=== PATIENT | female | born 1990 | race Caucasian/White ===

== ENCOUNTER → 2019-03-02 08:47 | Outpatient (BNVA) | payer BC, SELFPAY | PROVIDERS: Family Provider Family Medicine; PCP Family Medicine; Visit Provider Obstetrics & Gynecology | DX: O09.891 Supervision of other high risk pregnancies, first trimester (principal) | CPT/HCPCS: 36415; 80307; 82950; 84156; 84315; 84443; 85027; 86592; 86762; 86803; 86850; 86900; 87086; 87340 ==

== ENCOUNTER 2019-03-05 09:16 | Outpatient (CLI) | payer BC, SELFPAY ==
[2019-03-05 10:41] LABS: Creatinine Urine, Random 88 mg/dL (28-217)
[2019-03-05 11:15] LABS: Total Volume, Urine 2400 mL
[2019-03-05 11:16] LABS: Total Protein 24 Hour Urine 5.6 mg/24HR (0-150); Urine Total Protein 24 Hour 134.4 mg/24hr (0-150)
[2019-03-05 11:17] LABS: Collection Time Urine 24; Patient Height Urine 68; Patient Weight Urine 340; Total Volume Urine 2400
[2019-03-05 11:18] LABS: Creatinine Clearance Urine 366
== END 2019-03-05 09:17 | disposition home or self-care (01) ==
LOC: LAB 09:19
PROVIDERS: Family Provider Family Medicine; PCP Family Medicine; Visit Provider Obstetrics & Gynecology
DX: O10.011 Pre-existing essential hypertension complicating pregnancy, first trimester (principal)
CPT/HCPCS: 82575; 84156

== ENCOUNTER → 2019-03-12 11:40 | Outpatient (BNVA) | payer BC, SELFPAY | PROVIDERS: Family Provider Family Medicine; PCP Family Medicine; Visit Provider Obstetrics & Gynecology | DX: O09.891 Supervision of other high risk pregnancies, first trimester (principal) | CPT/HCPCS: 84315; 87491; 87591 ==

== ENCOUNTER → 2019-03-29 13:12 | Outpatient (BNVA) | payer BC, SELFPAY | PROVIDERS: Family Provider Family Medicine; PCP Family Medicine; Referring Provider Obstetrics & Gynecology; Visit Provider Obstetrics & Gynecology | DX: O10.912 Unspecified pre-existing hypertension complicating pregnancy, second trimester (principal); Z3A.15 15 weeks gestation of pregnancy | CPT/HCPCS: 76815 ==

== ENCOUNTER → 2019-04-06 09:22 | Outpatient (BNVA) | payer BC, SELFPAY | PROVIDERS: Family Provider Family Medicine; PCP Family Medicine; Visit Provider Obstetrics & Gynecology | DX: Z01.89 Encounter for other specified special examinations (principal) | CPT/HCPCS: 84315 ==

== ENCOUNTER → 2019-04-26 18:16 | Outpatient (BNVA) | payer BC, SELFPAY | PROVIDERS: Family Provider Family Medicine; PCP Family Medicine; Visit Provider Nurse Practitioner Family | DX: J02.9 Acute pharyngitis, unspecified (principal); R68.89 Other general symptoms and signs | CPT/HCPCS: 87081; 87804; 87880 ==

== ENCOUNTER → 2019-05-16 08:25 | Outpatient (BNVA) | payer BC, SELFPAY | PROVIDERS: Family Provider Family Medicine; PCP Family Medicine; Visit Provider Obstetrics & Gynecology | DX: Z36.89 Encounter for other specified antenatal screening (principal); Z3A.22 22 weeks gestation of pregnancy | CPT/HCPCS: 76805 ==

== ENCOUNTER → 2019-05-18 09:37 | Outpatient (BNVA) | payer BC, SELFPAY | PROVIDERS: Family Provider Family Medicine; PCP Family Medicine; Visit Provider Obstetrics & Gynecology | DX: Z01.89 Encounter for other specified special examinations (principal) | CPT/HCPCS: 84315 ==

== ENCOUNTER → 2019-06-06 08:00 | Outpatient (BNVA) | payer BC, SELFPAY | PROVIDERS: Family Provider Family Medicine; PCP Family Medicine; Visit Provider Obstetrics & Gynecology Female Pelvic Medicine and Reconstructive Surgery | DX: Z01.89 Encounter for other specified special examinations (principal) | CPT/HCPCS: 84315 ==

== ENCOUNTER → 2019-07-02 14:58 | Outpatient (BNVA) | payer BC, SELFPAY | PROVIDERS: Family Provider Family Medicine; PCP Family Medicine; Visit Provider Obstetrics & Gynecology | DX: O09.892 Supervision of other high risk pregnancies, second trimester (principal) | CPT/HCPCS: 82950; 84315; 85027 ==

== ENCOUNTER 2019-07-24 22:00 | Observation (INO) | payer BC, SELFPAY ==
[2019-07-24] VITALS (18 sets, daily range): BP systolic 0–180; BP diastolic 0–87; PULSE 84–105; RESP 18; TEMP 36.9; BMI 54.4
[2019-07-24 18:06] LABS: Basophils % 0.2 %; Eosinophils # 0.1 10^3/uL (0.0-0.8); Eosinophils % 0.5 %; Hematocrit 37.9 % (37.0-47.0); Hemoglobin 12.3 g/dL (11.5-15.3); Lymphocytes # 1.8 10^3/uL (0.8-4.8); Lymphocytes % 15.3 %; Mean Corpuscular HGB Conc 32.5 g/dL (30.0-36.0); Mean Corpuscular Hemoglobin 28.5 pg (28.0-34.0); Mean Corpuscular Volume 87.7 fL (81-99); Mean Platelet Volume 8.8 fL (7.4-10.4); Monocytes # 0.6 10^3/uL (0.2-0.9); Monocytes % 5.2 %; Neutrophils # 8.9 10^3/uL (1.8-7.7); Neutrophils % 78.3 %; Nucleated Red Blood Cells % 0 %; Platelet Count 292 10^3/cmm (130-400); Red Blood Count 4.32 10^6/uL (4.1-5.3); Red Cell Distribution Width 14.5 % (12.1-15.1); White Blood Count 11.4 10^3/uL (4.0-10.0)
[2019-07-24 18:38] LABS: Alanine Aminotransferase 21 U/L (0-33); Albumin Level 3.8 g/dL (3.5-5.2); Alkaline Phosphatase 78 IU/L (35-105); Anion Gap 17.1 (5-19); Aspartate Amino Transferase 15 U/L (0-32); Blood Urea Nitrogen 8 mg/dL (6-20); Carbon Dioxide 21 mmol/L (22-29); Chloride 103 mmol/L (98-107); Glomerular Filtration Rate 144.9 mL/min (90-130); Glucose 105 mg/dL (65-115); Osmolality Calculated 280 mOsm/kg (285-295); Potassium 4.1 mmol/L (3.5-5.1); Sodium 137 mmol/L (136-145); Total Bilirubin 0.6 mg/dL (0.15-1.2); Total Protein 6.8 g/dL (6.6-8.7); Uric Acid 4.1 mg/dL (2.4-5.7)
[2019-07-24 20:12] LABS: Urine Creatinine 151 mg/dL (28-217); Urine Protein Random 14 mg/dL
[2019-07-24 20:15] LABS: UPRO/UCREAT Ratio 0.09 mg/mg CR
[2019-07-24] MEDS: labetalol 200 mg Tablet 100 MG PO (20:20)
--- NOTE | 2019-07-24 20:21 | P.HP_ITS ---
Providers/Chief Complaint Admitting Physician: Judson Bridges MD Primary STORES LABORER: Judson Bridges MD Primary Care Provider: Lucas Galeano MD Chief Complaint: monitoring HPI STORES LABORER History of Present Illness Kerri Elliott is a 29 year old female 4, para 1-0-2-1 with an LMP of 12/15/2018 and an EDC of 09/21/2019 based on LMP and consistent with 15-week ultrasound, which placed her at 31-4/7 weeks gestation. She presented to labor and delivery with complaint of elevated blood pressures. She had been monitoring her blood pressure at home due to prepregnancy hypertension. At home, she reported that her blood pressure was 189/105 with several elevated ones that were not quite that high at home. She was reporting a headache since Tuesday, 07/21. Reports seeing floaters in her vision. Has no ticed some swelling. She reported good movement. She denied leaking of fluid or vaginal bleeding. She reported occasional contractions. care is been mainly provided by Dr. Judson Bridges [facility]. Her has been complicated by pre-e xisting hypertension, gastroesophageal reflux, obesity, and prior section. Patient's hypertension has not required medication during the . She had been on lisinopril before getting . Review of Systems Const: Denies: fever(s) or chills Eyes: Reports: change in vision (Reports seeing floaters ) ENMT: Denies: throat pain or nasal congestion Card: Reports: swelling of feet/ankles; Denies: chest pain, palpitations or lightheadedness Resp: Denies: dyspnea, productive cough, non-productive cough or wheezing GI: Denies: abdominal pain, nausea, vomiting, diarrhea or constipation : Reports: urinary frequency; Denies: dysuria, genital pruritis, vaginal bleeding or vaginal discharge Neuro: Reports: headache(s); Denies: dizziness or seizure-like activity Psych: Reports: anxiety (Controlled with medication) and depression (Controlled with medication) Nickolas/Lymph: Denies: easy bruising or easy bleeding Medications/Allergies Home Medications Medication Instructions Recorded Confirmed Last Taken Type ferrous sulfate 325 mg (65 mg 325 mg PO DAILY 04/06/19 07/16/19 Unknown History iron) tablet,delayed release Vitamin PO 04/26/19 07/16/1920 21:00 History aspirin 81 mg tablet,delayed 81 mg PO DAILY 05/18/19 07/24/19 07/23/19 21:00 History release cetirizine 10 mg capsule 10 mg PO DAILY 05/18/19 07/24/19 07/23/19 21:00 History acetaminophen 500 mg tablet 500 mg PO Q6H PRN 06/06/19 07/16/19 Unknown History omeprazole 20 mg capsule,delayed 20 mg PO DAILY 30 Days #30 cap 07/16/19 07/24/19 07/23/19 21:00 Rx release Allergies Allergy/AdvReac Type Severity Reaction Status Date / Time Penicillins Allergy Unknown Unknown Verified 07/16/19 15:02 gluten Allergy ADR-Hyperte Verified 07/24/19 20:08 nsion PFSH 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 Diagnosis: Worsening gestational hypertension. Performed by Dr. Judson Bridges at [facility] and [place], [place]. Confirmed LTCS with 2 layer closure. H/O dilation and curettage (08/04/17) Diagnosis: Molar . Performed by Dr. Judson Bridges at [facility] in [place], [place]. Pathology confirmed molar . History of cholecystectomy (~04/2014) Laparoscopic. Performed in [place], [place]. Family History Mother Hypertension Diabetes Father Hypertension Diabetes Heart disease Congestive heart failure (CHF) Chronic kidney disease (CKD) Brother Hypertension Grandfather Diabetes Heart disease Grandmother Diabetes Breast cancer Maternal Colon cancer Paternal Social History Smoking and tobacco status: never smoked Alcohol intake: former Former alcohol use details: Occational alcohol use, denies since Substance/Drug Use: never Additional social history: Nutrition: Well-balanced diet. Other Female Reproductive History: Hx Age of Menarche: 12 Duration of menses: 3-5 days Date of Last Menstrual Period: 10/18/19 Cycle Length: every 28 days Menstrual flow: normal/abnormal: normal History History History 4 Term 1 Miscarriages/Ectopic 2 0 Living Children 1 Past Pregnancies Del. Date GA/Weeks Outcome Route Wt Inf Gender Labor Lgth Comp. Anesth esia Location Unknown spontaneous 08/04/17 molar 05/18/18 37 live - full term 8 lb 4 oz Male [place] in [place], [place] Delivery Date: No notes to display Delivery Date: 08/04/17 Treated by D&C Judson Bridges Delivery Date: 05/18/[address] Judson Bridges. Complicated by: Severe gestational hypertension. due to worsening hypertension. Judson Bridges Care LATRICE Calculator Estimated Delivery Date Method Current WG Current Estimate 09/21/19 LMP (Certain) 31w 4d Other Estimates 09/20/19 Ultrasound #1 31w 5d 09/17/19 Ultrasound #2 32w 1d Expected Delivery Route/Plan Repeat section with BTL - scheduled for 09/18/2019 Specific Issues/Plans * Previous LTCS * Pre-existing hypertension * Obesity * Migraine headaches * Rubella Non-Immune - needs MMR after delivery. OB Visit Log Initial Weight: 345 lb Date -?-?-?-?-?-?-?-?-?-?-?-?- EGA Weight BP Albumin -?-?-?-?-?-?-?-?-?-?-?-?- Glucose Nitrate -?-?-?-?-?-?-?-?-?-?-?-?- Blood Fun Ht PRES HR MVMT -?-?-?-?-?-?-?-?-?-?-?-?- Edema Dilation Effacement -?-?-?-?-?-?-?-?-?-?-?-?- Station 02/08/19 -?-?-?-?-?-?-?--?-?-?-?-?- 7w 6d 345 lb (+0 oz) 126/84 Negative/Normal Negative/ 03/02/19 -?-?-?-?-?-?-?-?-?-?-?-?- 11w 0d 347 lb 6.4 oz (+2 lb 6.4 oz) 128/94 Neg (Nega tive) -?-?-?-?-?-?-?-?-?-?-?-?- Norm (Normal) Negative (Negat rossana) -?-?-?-?-?-?-?-?-?-?-?-?- -?-?-?-?-?-?-?-?-?-?-?-?- -?-?-?-?-?-?-?-?-?-?-?-?- 03/12/19 -?-?-?-?-?-?-?-?-?-?-?-?- 12w 3d 347 lb 2 oz (+2 lb 2 oz) 122/82 Neg (Negati ve) -?-?-?-?-?-?-?-?-?-?-?-?- Norm (Normal) Negative (Negat rossana) -?-?-?-?-?-?-?-?-?-?-?-?- -?-?-?-?-?-?-?-?-?-?-?-?- -?-?-?-?-?-?-?-?-?-?-?-?- 04/06/19 -?-?-?-?-?-?-?-?-?-?-?-?- 16w 0d 347 lb 2 oz (+2 lb 2 oz) 132/88 Neg (Negati ve) -?-?-?-?-?-?-?-?-?-?-?-?- Norm (Normal) Negative (Negat rossana) -?-?-?-?-?-?-?-?-?-?-?-?- 151 active -?-?-?-?-?-?-?-?-?-?-?-?- 1+ -?-?-?-?-?-?-?-?-?-?-?-?- 05/18/19 -?-?-?-?-?-?-?-?-?-?-?-?- 22w 0d 349 lb 6 oz (+4 lb 6 oz) 130/84 Neg (Negati ve) -?-?-?-?-?-?-?-?-?-?-?-?- Norm (Normal) Negative (Negat rossana) -?-?-?-?-?-?-?-?-?-?-?-?- Neg (Negative) 149 active -?--?-?-?-?-?-?-?-?-?-?-?- 1+ -?-?-?-?-?-?-?-?-?-?-?-?- 06/05/19 -?-?-?-?-?-?-?-?-?-?-?-?- 24w 4d -?-?-?-?-?-?-?-?-?-?-?-?- -?-?-?-?-?-?-?-?-?-?-?-?- -?-?-?-?-?-?-?-?-?-?-?-?- -?-?-?-?-?-?-?-?-?-?-?-?- 06/06/19 -?-?-?-?-?-?-?-?-?-?-?-?- 24w 5d 348 lb (+3 lb) 124/80 Neg (Negative ) -?-?-?-?-?-?-?-?-?-?-?-?- Norm (Normal) Negative (Negat rossana) -?-?-?-?-?-?-?-?-?-?-?-?- Neg (Negative) 29 vertex 138 active -?-?-?-?-?-?-?-?-?-?-?-?- 1+ -?-?-?-?-?-?--?-?-?-?-?-?- 07/02/19 -?-?-?-?-?-?-?-?-?-?-?-?- 28w 3d 351 lb 6 oz (+6 lb 6 oz) 118/84 Neg (Negati ve) -?-?-?-?-?-?-?-?-?-?-?-?- Norm (Normal) Negative (Negat rossana) -?-?-?-?-?-?-?-?-?-?-?-?- Neg (Negative) 32 140 act rossana -?-?-?-?-?-?-?-?-?-?-?-?- trace -?-?-?-?-?-?-?-?--?-?-?-?- 07/16/19 -?-?-?-?-?-?-?-?-?-?-?-?- 30w 3d 354 lb 6 oz (+9 lb 6 oz) 132/88 Neg (Negati ve) -?-?-?-?-?-?-?-?-?-?-?-?- Norm (Normal) Negative (Negat rossana) -?-?-?-?-?-?-?-?-?-?-?-?- Neg (Negative) 138 active -?-?-?-?-?-?-?-?-?-?-?-?- trace -?-?-?-?-?-?-?-?-?-?-?-?- 07/24/19 -?-?-?-?-?-?-?-?-?-?-?-?- 31w 4d 358 lb (+13 lb) 0/0 180/75 163/84 165/85 121/74 169/75 179/86 155/72 156/73 138/68 143/71 163/74 167/85 176/80 0/0 166/87 Neg (Negative) -?-?-?-?-?-?-?-?-?-?-?-?- Norm (Normal) Negative (Negat rossana) -?-?-?-?-?-?-?-?-?-?-?-?- Neg (Negative) 125 125 -?-?-?-?-?-?-?-?-?-?-?-?- -?-?-?-?-?-?-?-?-?-?-?-?- Notes Visit Date: 07/24/19 No visit notes to display Visit Date: 07/16/19 No visit notes to display Visit Date: 07/02/19 No visit notes to display Visit Date: 06/06/19 Patient presents today at 24+5 weeks gestation doing well no complaints no headaches no visual changes no right upper quadrant midepigastric pain. She has good movement. Recent ultrasound at 20 weeks was unremarkable patient did not do genetic screening or AFP. Her weight is down 1 kg from last visit. She is currently on baby aspirin for history of significant previous gestational hypertension. Patient desires repeat and tubal ligation. Ellis Cheung DO on 06/06/19 Visit Date: 06/05/19 No visit notes to display Visit Date: 05/18/19 ZI at 22-0/7 WG. Blood pressure remains normal. Screening ultrasound reviewed with patient and was normal. Judson Bridges MD on 05/22/19 Visit Date: 04/06/19 ZI at 16-0/7 WG. Nausea greatly improved. Blood pressure remains marsha l. Quad screen declined. Ultrasound for anatomic survey. Judson Bridges MD on 04/10/19 Visit Date: 03/12/19 OB exam at 12-3/7 WG. Consistent with dates. Gonorrhea and Chlamydia testing today. labs reviewed with patient. Rubella nonimmune - needs MMR after delivery. Hypertension. Blood pressure continues to remain normal. Nausea and vomiting of improving. Judson Bridges MD on 03/18/19 Visit Date: 03/02/19 No visit notes to display Visit Date: 02/08/19 OBI at 7.6 WG-------> ?28 year old with LMP of 12/15/2018, with LATRICE 09/21/2019 - short IC - mild nausea; managed with diet changes - chronic htn; managed without medication in previous until she developed severe features and was induced; off lisinopril for the last 4-5 months; BP normotensive today; collect 24 hour urine for TP after clear urine culture. - previous c/s; desires repeat with tubal -Ob packet provided. Reviewed routine vist schedule, labs, approved medications in , discussed the importance of avoiding nicotine/alcohol/drugs and the effects this has on her and the , and when to notify the doctor. Medical and obstetrical history reviewed. ? -Continue vitamins. - labs at next visit; discussed NIPT, QUAD, AFP, CF. Vitals/I&O/Wt Last Vital Signs Temp 98.5 F 07/24/19 17:28 Pulse 90 07/24/19 19:29 Resp 18 07/24/19 17:28 BP 166/87 07/24/19 19:29 Weight last 48 hrs Weight 358 lb Physical Exam Const: COMMON NORMALS: no acute distress, average body habitus, alert and well nourished GENERAL APPEARANCE: well developed ORIENTATION/CONSCIOUSNESS: Yes oriented to person, Yes oriented to place and Yes oriented to time Neck/C-Spine: COMMON NORMALS: Thyroid normal GENERAL: Yes trachea midline THYROID: Thyroid normal Resp: COMMON NORMALS: normal respiratory effort and clear to auscultation bilaterally AUSCULTATION: clear to auscultation bilaterally Cardio: COMMON NORMALS: regular rate, regular rhythm, No gallops present (Cardio), No murmurs present (Cardio) and No rub (Cardio) RATE: regular rate RHYTHM: regular rhythm GI: COMMON NORMALS: Soft to palpation, non-tender, No hepatosplenomegaly present and no masses (Except for nontender gravid uterus) INSPECTION: Yes gravid abdomen AUSCULTATION: Yes normoactive bowel sounds PALPATION: Yes Soft to palpation, Yes No hepatosplenomegaly present and No Hernia present Extremity: COMMON NORMALS: no calf tenderness GENERAL: Yes edema (1+ lower extremity edema) Neuro: SENSORIUM/ORIENTATION: Yes alert, Yes oriented to person, Yes oriented to place and Yes oriented to time Psych: COMMON NORMALS: normal affect MOOD & AFFECT: Yes euthymic mood Skin: COMMON NORMALS: no rashes or lesions noted GENERAL SKIN EXAM: no rashes or lesions noted Data : 07/24/19 17:50 07/24/19 17:50 Other Labs: 07/24/2019 at 17:50 ALT 21, AST 15 Uric acid 4.1 07/24/2019 at 18:00 Protein/creatinine ratio: 0.09 A&P Assessment and plan (1) Pre-existing essential hypertension complicating , third trimester: at 31-4/7 weeks gestation. Patient has had multiple elevated blood pressures with the majority in the 160s/80s range. She has had some in the normal ranges. Her initial evaluation for preeclampsia was negative with a protein/creatinine ratio of 0.09. Baby at this time has been reassuring on monitoring. With her diagnosis of pre-existing hypertension, I suspect that this represents the increase in her blood pressure that can be seen in the third trimester of . However, this could be the beginning stages of the development of preeclampsia, but that is not supported based upon lab work at this time. Because of having the pre-existing hypertension, I am starting her on scheduled labetalol at 100 mg twice a day. I recommend continuing to monitor blood pressure through the night. She is also starting a 24-hour urine collection for total protein. We will switch monitoring to twice a day NSTs. Depending upon blood pressure readings with the start of the oral labetalol, she may be able to be discharged tomorrow morning with the completion of her 24-hour urine as an outpatient. Questions were answered. Patient and her partner are in agreement with this plan at this time. Status: Acute Attestations Medical Necessity Statement*: Patient with worsening hypertension in third trimester of . She is currently being evaluated for possible preeclampsia. Coding Level of Care Code Acute Business And Marketing Teacher for Laura Hart Diagnoses Pre-existing essential hypertension complicating , third trimester O10.013
[2019-07-24 20:41] LABS: Blood Urine Neg (Negative); Glucose Urine UA Norm (Normal); Ketones Urine 1+ (Negative); Protein Urine Neg (Negative); Specific Gravity, Urine 1.025 (1.005-1.030); Urine Appearance Cloudy (CLEAR); Urine Color Yellow (Yellow); pH Urine 5 (5-7)
[2019-07-24 20:42] LABS: Add Urine Microscopic? YES; Bilirubin Urine Neg (NEGATIVE); Leukocyte Esterase Urine Negative (Negative); Nitrate Urine Negative (Negative); Urobilinogen Urine Norm (Negative)
[2019-07-24 20:43] LABS: Add Urine Culture? No; Bacteria Urine 1+; Mucus Urine TRACE; RBC Urine 0-4 /hpf (0-2); Squamous Epithelial Cell Urine 25-40 (0-5); WBC Urine 0-4 /hpf (0-5)
[2019-07-25] VITALS (8 sets, daily range): BP systolic 110–133; BP diastolic 50–72; PULSE 80–143; RESP 16–18; TEMP 36.6; O2SAT 90
[2019-07-25] MEDS: aspirin 81 mg EC Tablet PO (09:10)
[2019-07-25] MEDS: labetalol 200 mg Tablet 100 MG PO (09:10)
[2019-07-25] MEDS: pantoprazole DR 40 mg Tablet PO (09:10)
--- NOTE | 2019-07-25 15:43 | PM.DCS ---
Discharge Providers Date of Admission: 07/24/19 22:00 Date of Discharge: July 25, 2019 Attending Provider at Admission: Judson Bridges MD Attending Provider at Discharge: Judson Bridges MD Primary Care Provider: Lucas Galeano MD Diagnoses at Discharge Discharge Diagnosis (1) Pre-existing essential hypertension complicating , third trimester: Status: Acute Reason for Visit Reason for Visit: Reason For Visit: monitoring Hospital Course Hospital Course: Patient is a 29-year-old female 4, para 1-0-2-1 with an LMP of 12/15/2018 and an EDC of 09/21/2019 based on LMP and consistent with 15-week ultrasound, which placed her at 31-4/7 weeks gestation at the time of admission. Patient presented to labor and delivery on 07/24 with a complaint of worsening blood pressure. She reported that she had had blood pressures at home that were quite elevated with the highest being 185/105. She was reported having a headache and noticing floaters in her vision. Her past medical history was significant for having prepregnancy hypertension but had not required medication during the so far. Blood pressures in L&D was elevated with some considered in the severe range. Preeclamptic laboratory evaluation was performed with blood tests being in the normal ranges. Urine protein creatinine ratio was 0.09. Based upon this she did not have preeclampsia. As a result she was started on oral labetalol due to suspected worsening of her hypertension and not preeclampsia. However, 24-hour urine for total protein was started. With the starting of the labetalol, decision was made to keep her through the night to monitor her blood pressures. This morning, 07/24, patient reported doing well. Her headache had resolved. She reported baby has been moving well. She denied any leaking of fluid or vaginal bleeding. She reported occasional contractions. Physical Exam: See below Plan: Blood pressures have been in the normal ranges during the night after starting the oral labetalol. With increased activities this morning, blood pressure has remained in the normal range. As a result, I am discharging her from the hospital. She is to complete her 24-hour urine collection for total protein at home and bring it to the hospital tomorrow morning for testing. She was instructed to keep her scheduled appointment next week in the office. Physical Exam Const: COMMON NORMALS: no acute distress, average body habitus, alert and well nourished GENERAL APPEARANCE: well developed ORIENTATION/CONSCIOUSNESS: Yes oriented to person, Yes oriented to place and Yes oriented to time Resp: COMMON NORMALS: normal respiratory effort and clear to auscultation bilaterally AUSCULTATION: clear to auscultation bilaterally Cardio: COMMON NORMALS: regular rate, regular rhythm, No gallops present (Cardio) and No rub (Cardio) RATE: regular rate RHYTHM: regular rhythm GI: COMMON NORMALS: Soft to palpation, non-tender, No hepatosplenomegaly present and no masses (Except for nontender gravid uterus) AUSCULTATION: Yes normoactive bowel sounds PALPATION: Yes Soft to palpation, Yes No hepatosplenomegaly present and No Hernia present : EXTERNAL FEMALE EXAM: No Hernia present Extremity: COMMON NORMALS: no calf tenderness GENERAL: Yes edema (1+ lower extremity edema) Neuro: SENSORIUM/ORIENTATION: Yes alert, Yes oriented to person, Yes oriented to place and Yes oriented to time Psych: COMMON NORMALS: normal affect MOOD & AFFECT: Yes euthymic mood Discharge Data Data Completed and Pending: Pending at discharge Category Date Time Status Total Protein 24 Hour Urine Routine Lab 07/25/19 10:53 Ordered Labs from last 24 hours 07/24/19 07/24/19 07/24/19 18:00 18:00 17:50 WBC RBC Hgb Hct MCV MCH MCHC RDW Plt Count MPV Neut % (Auto) Lymph % (Auto) [facility] [facility] % (Auto) Eos % (Auto) Baso % (Auto) Neut # (Auto) Lymph # (Auto) [facility] # (Auto) Eos # (Auto) Baso # (Auto) Nucleated RBC % (a uto) Nucleated RBCs # Sodium 137 Potassium 4.1 Chloride 103 Carbon Dioxide 21 L Anion Gap 17.1 BUN 8 Creatinine 0.5 GFR Calculation 144.9 H Glucose 105 Calculated Osmolal ity 280 L Uric Acid 4.1 Calcium 9.0 Total Bilirubin 0.6 AST 15 ALT 21 Alkaline Phosphata se 78 Total Protein 6.8 Albumin 3.8 Globulin 3.0 Urine Color Yellow Urine Appearance Cloudy Urine pH 5 Ur Specific Gravit y 1.025 Urine Protein Neg Urine Glucose (UA) Norm Urine Ketones 1+ H Urine Blood Neg Urine Nitrate Negative Urine Bilirubin Neg Urine Urobilinogen Norm Ur Leukocyte Betty ase Negative Urine RBC 0-4 H Urine WBC 0-4 H Ur Squamous Epith Cells 25-40 H Urine Bacteria 1+ H Urine Mucus Trace U Random Total Pro tein 14 Urine Creatinine 151 Protein/Creatinin Ratio 0.09 07/24/19 17:50 WBC 11.4 H RBC 4.32 Hgb 12.3 Hct 37.9 MCV 87.7 MCH 28.5 MCHC 32.5 RDW 14.5 Plt Count 292 MPV 8.8 Neut % (Auto) 78.3 Lymph % (Auto) 15.3 [facility] % (Auto) 5.2 Eos % (Auto) 0.5 Baso % (Auto) 0.2 Neut # (Auto) 8.9 H Lymph # (Auto) 1.8 [facility] # (Auto) 0.6 Eos # (Auto) 0.1 Baso # (Auto) 0.0 Nucleated RBC % (a uto) 0 Nucleated RBCs # 0.0 Sodium Potassium Chloride Carbon Dioxide Anion Gap BUN Creatinine GFR Calculation Glucose Calculated Osmolal ity Uric Acid Calcium Total Bilirubin AST ALT Alkaline Phosphata se Total Protein Albumin Globulin Urine Color Urine Appearance Urine pH Ur Specific Gravit y Urine Protein Urine Glucose (UA) Urine Ketones Urine Blood Urine Nitrate Urine Bilirubin Urine Urobilinogen Ur Leukocyte Betty ase Urine RBC Urine WBC Ur Squamous Epith Cells Urine Bacteria Urine Mucus U Random Total Pro tein Urine Creatinine Protein/Creatinin Ratio Vitals: Last Vital Signs Temp 98 F 07/25/19 00:00 Pulse 90 07/25/19 11:17 Resp 17 07/25/19 11:17 BP 131/72 07/25/19 11:17 Pulse Ox 90 07/25/19 03:22 Discharge Plan Discharge Patient Disposition: Home, Self-Care Prescriptions: New labetalol 100 mg tablet 100 mg PO BID Qty: 60 RF: 3 Continued ferrous sulfate 325 mg (65 mg iron) tablet,delayed release (DR/EC) 325 mg PO DAILY RF: 0 Zyrtec 10 mg capsule 10 mg PO DAILY RF: 0 aspirin [Adult Low Dose Aspirin] 81 mg tablet,delayed release (DR/EC) 81 mg PO DAILY RF: 0 omeprazole 20 mg capsule,delayed release(DR/EC) 20 mg PO DAILY 30 Days Qty: 30 RF: 6 Vitamin PO RF: 0 acetaminophen [Tylenol Extra Strength] 500 mg tablet 500 mg PO Q6H PRNRF: 0 Discharge Orders: Discharge Order (Routine); Ordered 05/27/20 Ordered By: Judson Bridges Referrals: Judson Bridges MD [Physician] - (Keep scheduled appointment) Discharge Diet: Regular Discharge Activity: Resume usual activity Patient Instructions: 24 Hour Urine Collection (GEN), Hypertension (GEN), OB Undelivered Discharge Activity Restrictions/Additional Instructions: please drink plenty of water 8-10 glasses daily, rest, Keep all scheduled appointments and follow up as needed. Please return 24 hour urine collection in the morning please. Discharge Date/Time: 07/25/19 11:18 Discharge Attestations Time Spent in Discharge Care*: less than 30 min Quality Metrics Clinical Quality Measures During this hospital stay, did patient experience: None Coding Level of Care Code Acute Painter Decorator for Chg Fwd Diagnoses Pre-existing essential hypertension complicating , third trimester O10.013
== END 2019-07-25 11:18 | disposition home or self-care (01) ==
LOC: OPOB 07-25 09:37
PROVIDERS: Admitting Provider Obstetrics & Gynecology; Family Provider Family Medicine; PCP Family Medicine; Visit Provider Obstetrics & Gynecology
DX: O10.013 Pre-existing essential hypertension complicating pregnancy, third trimester (principal); Z3A.31 31 weeks gestation of pregnancy; O99.213 Obesity complicating pregnancy, third trimester
CPT/HCPCS: 12345; 36415; 59025; 80053; 81001; 82570; 84156; 84550; 85025; 99211; G0378

== ENCOUNTER 2019-07-26 08:44 | Outpatient (CLI) | payer BC, SELFPAY ==
[2019-07-26 08:59] LABS: Total Volume, Urine 1800 mL
[2019-07-26 09:25] LABS: Urine Total Protein 24 Hour 7.5 mg/dL (0-150)
== END 2019-07-26 08:45 | disposition home or self-care (01) ==
LOC: LAB 08:46
PROVIDERS: PCP Family Medicine; Visit Provider Obstetrics & Gynecology
DX: Z01.89 Encounter for other specified special examinations (principal)
CPT/HCPCS: 84156

== ENCOUNTER 2019-08-02 13:34 | Outpatient (CLI) | payer BC, SELFPAY ==
[2019-08-02 13:45] VITALS: RESP 18; TEMP 36.7
--- NOTE | 2019-08-02 13:45 | US_ITS ---
WS: [id number] US OB BPP wo NST 67998 REASON FOR EXAM: gestational hypertension FINDINGS: heart rate 141 beats for minute. Biophysical profile show normal breathing, motion, tone amniotic fluid indices, with a biophysical pr ofile of 8/8. US/US OB BPP wo NST 36324 IMPRESSION: Biophysical profile 8 out of 8 normal.
[2019-08-02 13:55] VITALS: BP 147/71; PULSE 87
[2019-08-02 14:34] VITALS: BP 147/65; PULSE 88
[2019-08-02 14:39] VITALS: BMI 54.8
--- NOTE | 2019-08-02 16:57 | PM.ACPR ---
NST (Non-Stress Test) NST : 4 Para: 1,021 Due date: 09/21/19 Gestational age (weeks): 32 Indications: Prepregnancy hypertension complicating in third trimester at 32-6/7 weeks gestation Test: NST Time: 13:53 Length of test in Minutes: 40 Contractions: None Fetus Fetus 1: Baseline FHR BMP:: 130 Variability: Moderate Accelerations: Present Decelerations: None Reacticity: Reactive Interpretation/Plan Interpretation by: Judson Bridges Comments: Reactive NST. Biophysical profile pending
== END 2019-08-02 14:55 | disposition home or self-care (01) ==
LOC: OPOB 13:43 → OBGYN 13:43
PROVIDERS: PCP Family Medicine; Visit Provider Obstetrics & Gynecology
DX: O16.9 Unspecified maternal hypertension, unspecified trimester (principal); Z3A.00 Weeks of gestation of pregnancy not specified
CPT/HCPCS: 12345; 59025; 76819; 84315; 99211

== ENCOUNTER → 2019-08-20 10:03 | Outpatient (BNVA) | payer BC, SELFPAY | PROVIDERS: PCP Family Medicine; Visit Provider Obstetrics & Gynecology | DX: O10.013 Pre-existing essential hypertension complicating pregnancy, third trimester (principal); Z3A.35 35 weeks gestation of pregnancy | CPT/HCPCS: 82570; 84156; 84315 ==

== ENCOUNTER → 2019-08-27 13:54 | Outpatient (BNVA) | payer BC, SELFPAY | PROVIDERS: PCP Family Medicine; Visit Provider Obstetrics & Gynecology | DX: O10.013 Pre-existing essential hypertension complicating pregnancy, third trimester (principal) | CPT/HCPCS: 84315; 87081 ==

== ENCOUNTER 2019-09-05 05:31 | Inpatient (IN) | payer BC, SELFPAY ==
[2019-09-05] VITALS (20 sets, daily range): BP systolic 106–161; BP diastolic 58–88; PULSE 67–87; RESP 17–20; TEMP 36.1–37.2; O2SAT 95–99; BMI 54.8
[2019-09-05] MEDS: lactated ringers 1,000 ML 999 ML IV (06:24)
[2019-09-05 06:33] LABS: Basophils % 0.2 %; Eosinophils # 0.1 10^3/uL (0.0-0.8); Eosinophils % 0.9 %; Hematocrit 35.7 % (37.0-47.0); Hemoglobin 11.8 g/dL (11.5-15.3); Lymphocytes # 1.5 10^3/uL (0.8-4.8); Lymphocytes % 15.3 %; Mean Corpuscular HGB Conc 33.1 g/dL (30.0-36.0); Mean Corpuscular Hemoglobin 29.4 pg (28.0-34.0); Monocytes # 0.6 10^3/uL (0.2-0.9); Monocytes % 6.2 %; Neutrophils # 7.6 10^3/uL (1.8-7.7); Neutrophils % 76.7 %; Nucleated Red Blood Cells % 0 %; Platelet Count 280 10^3/cmm (130-400); Red Blood Count 4.01 10^6/uL (4.1-5.3); Red Cell Distribution Width 14.2 % (12.1-15.1)
[2019-09-05 06:38] LABS: Alanine Aminotransferase 31 U/L (0-33); Albumin Level 3.7 g/dL (3.5-5.2); Alkaline Phosphatase 80 IU/L (35-105); Anion Gap 13.9 (5-19); Aspartate Amino Transferase 19 U/L (0-32); Blood Urea Nitrogen 9 mg/dL (6-20); Carbon Dioxide 21 mmol/L (22-29); Chloride 102 mmol/L (98-107); Globulin 2.8 g/dL (1.3-4.6); Glomerular Filtration Rate 144.9 mL/min (90-130); Glucose 99 mg/dL (65-115); Osmolality Calculated 272 mOsm/kg (285-295); Potassium 3.9 mmol/L (3.5-5.1); Sodium 133 mmol/L (136-145); Total Bilirubin 0.7 mg/dL (0.15-1.2); Total Protein 6.5 g/dL (6.6-8.7); Uric Acid 4.8 mg/dL (2.4-5.7)
[2019-09-05] MEDS: citric acid-sodium citrate 30 mL UDC PO (06:43)
[2019-09-05] MEDS: famotidine 20 mg/2 mL INJ IVP (06:44)
[2019-09-05] MEDS: ketorolac 30 mg/mL INJ IVP ×2 (06:44→13:30)
[2019-09-05] MEDS: metoclopramide 5 mg/mL SDV 2 mL 10 MG IV (06:45)
--- NOTE | 2019-09-05 06:46 | P.ANESASSM_ITS ---
Pre-Anesthetic Assessment Pre-Anesthetic Assessment: Height/Weight: Height 1.73 m Weight 163.747 kg Temp Resp 98.9 F 18 09/05/19 05:52 09/05/19 05:52 Preop Diagnosis: previous Proposed Procedure: Operation Date: 09/05/19 07:00 Proposed Procedures p Section Repeat With [id number]/Z34.90/Z98.891/Z30.2(Bilateral) - Judson Bridges MD Familial anesthetic complications: none Was Beta Sid taken within 24 hours: Yes Last intake: Intake Last Liquid Date 09/04/19 Last Liquid Time 23:00 Last Solid Date 09/04/19 Last Solid Time 20:30 Last Intake: 04:30 Social: Social History: No alcohol and No tobacco Exam: Pre-Anes Outpt Exam: alert, oriented x 3, clear to auscultation bilaterally and regular rate & rhythm Airway: Submandibular: WNL Cervical ROM: WNL MP: 2 Dentition: Full Pulmonary: Pulmonary: Asthma (as a child, hasnt been treated in years) CV/HEM: CV/HEM: HTN : : None reported Hepatic: Hepatic: None reported GI: GI: GERD Metabolic: Metabolic: Morbid obesity Musc/skel: Musc/skel: None reported Neuropsych: Neuropsych: None reported Anesthetic Plan: ASA status: 3 Anesthesia: Eval. for regional block and Regional (specify below) Other: SAB Risk of > 500 ml blood loss (7ml/kg in children): Yes, adequate IV access and fluids planned Meds/Allergies Current Medications: Current Medications Generic Name Dose Route Start Last Admin Trade Name Freq PRN Reason Stop Dose Admin Lactated Ringer's 1,000 mls @ 999 m ls/hr 09/05/19 05:52 09/05/19 06:24 Lactated Ringers IV 999 mls/hr .Q1H1M PRN Administration BLEEDING PFSH Anesthesia PFSH: Medical History Gastroesophageal reflux Genital warts Hypertension Migraine with aura and without status migrainosus Obesity Surgical History H/O section (05/18/18) Primary LTCS. Diagnosis: Worsening gestational hypertension. Performed by Dr. Judson Bridges at [facility] and [place], [place]. Confirmed LTCS with 2 layer closure. H/O dilation and curettage (08/04/17) Diagnosis: Molar . Performed by Dr. Judson Bridges at [facility] in [place], [place]. Pathology confirmed molar . History of cholecystectomy (~04/2014) Laparoscopic. Performed in [place], [place]. Family History Mother Hypertension Diabetes Father Hypertension Diabetes Heart disease Congestive heart failure (CHF) Chronic kidney disease (CKD) Brother Hypertension Grandfather Diabetes Heart disease Grandmother Diabetes Breast cancer Maternal Colon cancer Paternal Social History Smoking and tobacco status: never smoked Alcohol intake: former Former alcohol use details: Occational alcohol use, denies since Agree to transfusion: Yes Additional social history: Nutrition: Well-balanced diet. Female Reproductive History: : 3 Data Anesthesia CBC & Chem 7: 09/05/19 05:30 09/05/19 05:55 Other Labs: Laboratory Results - last 48 hr 09/05/19 09/05/19 09/05/19 05:30 05:55 05:55 WBC 10.0 RBC 4.01 L Hgb 11.8 Hct 35.7 L MCV 89.0 MCH 29.4 MCHC 33.1 RDW 14.2 Plt Count 280 MPV 9.0 Neut % (Auto) 76.7 Lymph % (Auto) 15.3 Dickinson % (Auto) 6.2 Eos % (Auto) 0.9 Baso % (Auto) 0.2 Neut # (Auto) 7.6 Lymph # (Auto) 1.5 Dickinson # (Auto) 0.6 Eos # (Auto) 0.1 Baso # (Auto) 0.0 Nucleated RBC % (auto) 0 Nucleated RBCs # 0.0 Sodium 133 L Potassium 3.9 Chloride 102 Carbon Dioxide 21 L Anion Gap 13.9 BUN 9 Creatinine 0.5 GFR Calculation 144.9 H Glucose 99 Calculated Osmolality 272 L Uric Acid 4.8 Calcium 9.0 Total Bilirubin 0.7 AST 19 ALT 31 Alkaline Phosphatase 80 Total Protein 6.5 L Albumin 3.7 Globulin 2.8 Cardiac Studies: No Data to Display
[2019-09-05 06:48] LABS: Urine Creatinine 223 mg/dL (28-217)
[2019-09-05 06:49] LABS: UPRO/UCREAT Ratio 0.12 mg/mg CR; Urine Protein Random 26 mg/dL
--- NOTE | 2019-09-05 06:49 | P.HPUD_ITS ---
Surgery/Procedure H&P Update DATE OF PROCEDURE: September 05, 2019 DATE H&P PERFORMED: 09/03/19 H&P UPDATE INFORMATION: I have reviewed H&P completed within last 30 days, I have examined patient prior to procedure, No changes to prior documentation and H&P is in [facility] EMR on date indicated PREOP DIAGNOSIS: Previous section, Undesired fertility, Pre- Hypertension PLANNED PROCEDURE: Operation Date: 09/05/19 07:00 Proposed Procedures p Section Repeat With [id number]/Z34.90/Z98.891/Z30.2(Bilateral) - Judson Bridges MD Related Problem List Diagnoses (1) Maternal care for unspecified type scar from previous delivery: Qualifiers: Previous delivery type: low transverse Qualified Code(s): O34.211 - Maternal care for low transverse scar from previous delivery (2) Sterilization education: (3) Pre-existing essential hypertension complicating , third trimester: (4) Obesity affecting : Qualifiers: Trimester: third trimester Qualified Code(s): O99.213 - Obesity complicating , third trimester
--- NOTE | 2019-09-05 08:47 | P.OP_ITS ---
Operative Report Date of procedure: September 05, 2019 Pre-op Diagnosis: 1. Previous section - declines 2. Undesired fertility 3. at 37-5/7 weeks gestation 4. Pre-existing hypertension complicating in third trimester 5. Obesity complicating in third trimester 6. Gastroesophageal reflux in in third trimester 7. Rubella nonimmune status in in third trimester Post-op Diagnosis: 1. Previous section - declines - delivered 2. Undesired fertility 3. at 37-5/7 weeks gestation 4. Pre-existing hypertension complicating in third trimester - delivered 5. Obesity complicating in third trimester - delivered 6. Gastroesophageal reflux in in third trimester - delivered 7. Rubella nonimmune status in in third trimester - delivered 8. Viable female infant Procedure Done: Repeat low transverse section, bilateral tubal ligation (complete salpingectomy) Specimens removed/disposition: Right and left fallopian tubes Surgeon: Judson Bridges Landscape Architect And Planner: None Anesthesia: Other (Spinal) Estimated blood loss (mL): 800 IV fluids (mL): 1,500 Urine output (mL): 50 Complications: None Findings: 1. Viable female , cephalic presentation, weighing 7 lbs 15 oz (3610 g) with a length of 20-1/2 inches and Apgars of 8 at 1 minute and 8 at 5 minutes. 2. Normal-appearing uterus tubes and ovaries. Condition: stable Brief History: Patient is a 29-year-old white female 4, para 1-0-2-1 with an LMP of 12/15/2018 and an EDC of 09/21/2019 based on LMP and consistent with a 15-week ultrasound. She presented to L&D on 09/05/2019 at 37-5/7 weeks gestation for repeat section. Patient's had been complicated by pre-existing hypertension. Blood p ressure had been controlled with medications, but over the last month medication requirements have been increasing. With the worsening hypertension recommendations were to proceed with delivery at this time. Because of having had a prior section, patient wanted to proceed with a repeat section. She had also stated during the that she did not want any further children and wanted to proceed with sterilization at the time of her C- section. Different sterilization methods were discussed including risks, failure rates, and risk for ectopic . Questions were answered. She wanted to proceed with complete removal of the tubes. This morning prior to surgery, she still wished to proceed with complete removal of the tubes. Procedure: Patient was taken to the operating room where spinal anesthesia was obtained. She was prepped and draped in the usual sterile fashion in a dorsal supine position with a leftward tilt. Seals catheter and sequential compression boots had been placed prior to starting the case. A Pfannenstiel skin incision was made with a knife through the patient's prior scar and carried down to the underlying fascia with the knife. Fascia was incised in the midline with the knife and extended laterally with José scissors. Superior aspect of the fascia was grasped with Sharad clamps, elevated, and sharply and bluntly dissected. The inferior aspect of the fascia was grasped with Sharad clamps, elevated, and sharply and bluntly dissected. The rectus muscles were in the midline. Peritoneum was sharply entered. Peritoneal incision was extended both superiorly and inferiorly with good visualization of the bladder. An Deonte O retractor was placed. The vesicouterine peritoneum was tented up and sharply entered. It was extended laterally and the bladder flap was created digitally. A transverse incision was made with the knife in the lower uterine segment. Clear fluid was obtained upon entry into the uterine cavity. The 's head was delivered and no nuchal cords were noted. The rest of the delivered atraumatically. Nose and mouth were suctioned with bulb suction. Cord was clamped and cut and the infant was handed off to Dr. Galeano and the waiting nurses. Cord blood was obtained. Placenta was delivered via uterine massage. Patient received 20 units of Pitocin in the IV fluids. The uterus was cleared of clots and debris. The uterine incision was closed in a running locking fashion using 0 Vicryl suture. The incision was imbricated using 0 Vicryl suture in a horizontal mattress fashion. The incision was inspected and noted to be hemostatic. The left fallopian tube was grasped with Rashid clamps. The mesosalpinx was transilluminated, identifying the vessels coming to the tubes. Using 2-0 chromic suture, the vessels coming through the mesosalpinx to the fallopian tube were individually tied. The mesosalpinx was then cut with electrocautery. The vessels at the distal end of the tube were tied with a free tie of 0 plain suture. The proximal end of the tube was tied with a free stitch of 0 plain suture. These were then cut, completely excising the tube. The ends were cauterized with electrocautery. The right fallopian tube was grasped with Rashid clamps. The mesosalpinx was transilluminated, identifying the vessels coming to the tubes. Using 2-0 chromic suture, the vessels coming through the mesosalpinx to the fallopian tube were individually tied. The mesosalpinx was then cut with electrocautery. The vessels at the distal end of the tube were tied with a free tie of 0 plain suture. The proximal end of the tube was tied with a free stitch of 0 plain suture. These were then cut, completely excising the tube. The ends were cauterized with electrocautery. Posterior cul-de-sac was thoroughly irrigated and cleared of clots and blood. The uterus was returned to the abdomen. The uterine incision was irrigated and noted to be hemostatic. The gutters were cleared of clots and blood. The rectus muscles and peritoneum were reapproximated in the midline using interrupted stitches of 2-0 Vicryl suture. The muscle layer was irrigated and noted to be hemostatic. The fascia was reapproximated using 0 Vicryl suture in a running fashion. The subcutaneous layer was irrigated and brought to hemostasis using electrocautery. It was reapproximated using 3-0 plain suture in an interrupted fashion. Skin was reapproximated using 4-0 Vicryl suture in a subcuticular fashion. Steri-Strips were applied. Patient tolerated the procedures well. Sponge, needle, and instrument counts were correct. DRAINS: Seals catheter POSTOPERATIVE STATUS: The patient was left to recover in satisfactory condition Associated Problem List Diagnoses (1) Previous , delivered, current hospitalization: (2) Sterilization education: (3) Pre-existing hypertension affecting , delivered, current hospitalization: (4) Gastroesophageal reflux in in third trimester: (5) Maternal obesity, delivered, current hospitalization: (6) Rubella nonimmune status, delivered, current hospitalization:
[2019-09-05] MEDS: dextrose 5%-lactated ringers 1,000 ML 125 ML IV ×2 (12:14→18:24)
[2019-09-05] MEDS: sodium chloride 0.9% 500 ML 999 ML IV (17:42)
[2019-09-05] MEDS: docusate sodium 100 mg Capsule PO (17:43)
[2019-09-05] MEDS: labetalol 200 mg Tablet 250 MG PO (20:36)
[2019-09-06 00:25] VITALS: PULSE 74; RESP 17; O2SAT 96
[2019-09-06 03:00] VITALS: BP 121/79; PULSE 70; RESP 18; TEMP 36.5
[2019-09-06 04:25] VITALS: BP 124/83; PULSE 81; RESP 18; TEMP 36.6
[2019-09-06 05:30] LABS: Hematocrit 39.2 % (37.0-47.0); Mean Corpuscular HGB Conc 30.6 g/dL (30.0-36.0); Mean Corpuscular Hemoglobin 29.3 pg (28.0-34.0); Mean Corpuscular Volume 95.8 fL (81-99); Mean Platelet Volume 9.1 fL (7.4-10.4); Platelet Count 196 10^3/cmm (130-400); Red Blood Count 4.09 10^6/uL (4.1-5.3); Red Cell Distribution Width 14.5 % (12.1-15.1); White Blood Count 9.8 10^3/uL (4.0-10.0)
[2019-09-06] MEDS: pantoprazole DR 40 mg Tablet PO (08:18)
[2019-09-06] MEDS: prenatal vitamin Capsule 1 CAP PO (08:19)
[2019-09-06] MEDS: labetalol 200 mg Tablet 250 MG PO (08:19)
[2019-09-06] MEDS: HYDROcodone-acetaminophen 5-325 mg Tablet PO ×2 (08:19→12:18)
[2019-09-06] MEDS: docusate sodium 100 mg Capsule PO (08:20)
[2019-09-06 08:25] VITALS: BP 157/93; PULSE 92; RESP 16; TEMP 36.6
[2019-09-06 09:45] VITALS: BP 142/73; PULSE 83; RESP 16
[2019-09-06 11:52] VITALS: BP 141/76; PULSE 87; RESP 16; TEMP 36.7; O2SAT 98
--- NOTE | 2019-09-06 11:59 | P.DS_ITS ---
Discharge Providers VIRTUALIZATION ARCHITECT Date of Admission: 09/05/19 05:31 Date of Discharge: 09/06/19 Attending Provider at Admission: Judson Bridges MD Attending Provider at Discharge: Judson Bridges MD Primary Care Provider: Lucas Galeano MD Diagnoses at Discharge Discharge Diagnosis (1) Previous , delivered, current hospitalization: Status: Acute (2) Sterilization education: Status: Acute (3) Pre-existing hypertension affecting , delivered, current hospitalization: Status: Acute (4) Gastroesophageal reflux in in third trimester: Status: Acute (5) Maternal obesity, delivered, current hospitalization: Status: Acute (6) Rubella nonimmune status, delivered, current hospitalization: Status: Acute Reason for Visit Reason for Visit: csection Hospital Course Discharge Summary: Patient is a 29-year-old white female 4, para 1-0- 2-1 with an LMP of 12/15/2018 and an EDC of 09/21/2019 based on LMP and consistent with a 15-week ultrasound. She had presented to L&D on 09/05/2019 at 37-5/7 weeks gestation for repeat section. Her care has been complicated by pre-existing hypertension which has been controlled with medications. However, over the last month, medication requirements have continued to increase and due to her worsening hypertension, decision was made to go ahead and proceed with delivery at 37 weeks. She had had a prior section and was declining . She had also stated during the that she did not want any further children and wanted to have sterilization performed. As a result she was admitted to the hospital for a repeat section and tubal ligation. A repeat low transverse section was performed with the delivery of a viable female weighing 7 lbs 15 oz (3610 g) with a length of 20-1/2 inches and Apgars of 8 at 1 minute and 8 at 5 minutes. Patient received Duramorph in her spinal for pain management after surgery. Postoperative day 1 Patient reported doing well. She stated her pain had been well controlled with the Duramorph. She was tolerating a regular diet without nausea or vomiting. She was ambulating without lightheadedness or dizziness. She denied shortness of breath or chest pains. She denied problems with urination. She stated her bleeding had slowed. Baby had been transferred to [facility] due to increasing oxygen requirements. As a result, patient was requesting discharge today. Physical exam: See below Plan Blood pressure has been controlled on labetalol in the hospital. Dose had been decreased from 250 mg twice a day to 200 mg prior to discharge. Activities were increased. She was started on oral pain medication which worked well for her. She was doing well and was discharged home after lunch on post operative day 1. Information Peripartum Data: Delivery Method: Section Physical Exam Const: COMMON NORMALS: no acute distress, average body habitus, alert and well nourished GENERAL APPEARANCE: well developed ORIENTATION/CONSCIOUSNESS: Yes oriented to person, Yes oriented to place and Yes oriented to time Resp: COMMON NORMALS: normal respiratory effort and clear to auscultation bilaterally AUSCULTATION: clear to auscultation bilaterally Cardio: COMMON NORMALS: regular rate, regular rhythm, No gallops present (Cardio) and No rub (Cardio) RATE: regular rate RHYTHM: regular rhythm GI: COMMON NORMALS: Soft to palpation, No hepatosplenomegaly present and no masses (Except for tender, uterus, approximately 2 fingerbreadths below umbilicus.) INSPECTION: Yes incision (Pfannenstiel incision well approximated with Steri-Strips present.) AUSCULTATION: Yes normoactive bowel sounds PALPATION: Yes Soft to palpation, Yes Tenderness to palpation present (GI) (Lower abdominal), Yes No hepatosplenomegaly present and No Hernia present : EXTERNAL FEMALE EXAM: No Hernia present Extremity: COMMON NORMALS: no calf tenderness NARRATIVE EXTREMITY EXAM: 1+ lower extremity edema Neuro: SENSORIUM/ORIENTATION: Yes alert, Yes oriented to person, Yes oriented to place and Yes oriented to time Psych: COMMON NORMALS: normal affect MOOD & AFFECT: Yes euthymic mood Urinary Catheter Management^: Seals Latex: Cath Placed During This Visit: yes, but has since been removed by the nurse Reason for Continuing Indwelling Catheter: Decision to DC Catheter Urinary Catheter Date of Insertion: 09/05/19 Urinary Catheter Time of Insertion: 07:25 Date Urinary Catheter Removed: 09/05/19 Time Urinary Catheter Discontinued: 23:54 Discharge Data Data Completed and Pending: Pending at discharge Category Date Time Status Pathology: Surgic al [PTH] Routine Pth 09/05/19 10:42 Received Labs from last 24 hours 09/06/19 05:15 WBC 9.8 RBC 4.09 L Hgb 12.0 Hct 39.2 MCV 95.8 D MCH 29.3 MCHC 30.6 D RDW 14.5 Plt Count 196 MPV 9.1 Vitals: Last Vital Signs Temp 97.8 F 09/06/19 08:25 Pulse 83 09/06/19 09:45 Resp 16 09/06/19 09:45 BP 142/73 09/06/19 09:45 Pulse Ox 96 09/06/19 00:25 Discharge Plan Discharge Patient Disposition: Home Condition: Stable Prescriptions: New hydrocodone-acetaminophen 5-325 mg Tablet 1 - 2 tab PO Q6H PRN (Reason: Moderate To Severe Pain) Qty: 30 RF: 0 ibuprofen 800 mg Tablet 800 mg PO TID PRN (Reason: pain) Qty: 40 RF: 0 Continued Zyrtec 10 mg capsule 10 mg PO DAILY RF: 0 aspirin [Adult Low Dose Aspirin] 81 mg tablet,delayed release (DR/EC) 81 mg PO DAILY RF: 0 omeprazole 20 mg capsule,delayed release(DR/EC) 20 mg PO DAILY 30 Days Qty: 30 RF: 6 Vitamin PO RF: 0 Discontinued labetalol 100 mg tablet 250 mg PO BID RF: 0 No Action labetalol 100 mg tablet 200 mg PO BID Qty: 120 RF: 0 Discharge Orders: Discharge Order (Routine); Ordered 09/06/19 Ordered By: Judson Bridges Referrals: Judson Bridges MD [Physician] - (09/20/2019 at 1:45 for postoperative appointment 10/24/2019 at 9:45 for appointment.) Discharge Diet: Regular Discharge Activity: Limit activity as instructed Patient Instructions: Your Baby (DC), Breast Care for the Breast Feeding Mother (DC), OB [facility], OB Discharge Report, OB Food/Drug Interaction Guide, OB Care at Home Discharge Date/Time: 09/06/19 12:35 Discharge Attestations VIRTUALIZATION ARCHITECT Time Spent in Discharge Care*: less than 30 min Coding Level of Care Code Acute Photo Finish Photographer for Chg Fwd Diagnoses Previous , delivered, current hospitalization O34.219 Sterilization education Z30.09 Pre-existing hypertension affecting , delivered, current hospitalization O10.02 Gastroesophageal reflux in in third trimester O99.613; K21.9 Maternal obesity, delivered, current hospitalization O99.214 Rubella nonimmune status, delivered, current hospitalization O99.89; Z28.3
--- NOTE | 2019-09-06 12:42 | PC.NURSE ---
Call to Donna, Dr Bridges nurse, in regards to MMR injection was not given prior to discharge. Donna verbalized that she would make Dr Bridges aware of it.
== END 2019-09-06 12:35 | disposition home or self-care (01) | DRG 785 ==
PROVIDERS: Admitting Provider Obstetrics & Gynecology; PCP Family Medicine; Visit Provider Obstetrics & Gynecology
PROC: 10D00Z1 Extraction of Products of Conception, Low, Open Approach (ICD-10-PCS; CPT 59514; principal; 2019-09-05 07:00)
DX: O10.92 Unspecified pre-existing hypertension complicating childbirth (principal); O34.211 Maternal care for low transverse scar from previous cesarean delivery; Z3A.37 37 weeks gestation of pregnancy; N85.8 Other specified noninflammatory disorders of uterus; O99.214 Obesity complicating childbirth; O99.284 Endocrine, nutritional and metabolic diseases complicating childbirth; Z37.0 Single live birth; K21.9 Gastro-esophageal reflux disease without esophagitis; Z30.2 Encounter for sterilization
CPT/HCPCS: 12345; 36415; 51702; 58611; 59025; 59409; 80053; 82570; 84156; 84550; 85025; 85027; 86900; 88302; 96375; J1885; J2274; J2590; J2765; J3490; J7030; J7040

== ENCOUNTER 2020-12-30 08:47 | Outpatient (CLI) | payer BC, SELFPAY ==
--- NOTE | 2020-12-30 08:57 | NM_ITS ---
WS: [id number] NUCLEAR MEDICINE 24 HOUR I-123 THYROID UPTAKE INDICATION: TECHNIQUE: I-123 24 HOUR THYROID UPTAKE WITH PLANAR IMAGING. 126 UCI MALATHI 123 COMPARISON: Outside ultrasound thyroid November 12, 2020 FINDINGS: Normal bilateral symmetric thyroid uptake in both thyroid lobes. No suspicious photopenic d efects to correspond to the small nodules on the recent ultrasound. 24-hour uptake increased at 54.6% NORMAL 24H THRYOID UPTAKE 8-35% NM/NM thyroid uptake multi [id number] IMPRESSION: 1. Increased 24 hour uptake at 54.6% compatible with hyperactive thyroid. Jamshid mmend correlation with thyroid function studies. 2. No photopenic defects corresponding to the small nodules on the recent ultr asound
== END 2020-12-30 08:48 | disposition home or self-care (01) ==
LOC: RAD 08:49
PROVIDERS: PCP Family Medicine; Visit Provider Specialist
DX: E04.1 Nontoxic single thyroid nodule (principal)
CPT/HCPCS: 78014; A9516

== ENCOUNTER 2021-01-15 14:35 | Emergency (ER) | payer BC, SELFPAY ==
[2021-01-15 15:32] VITALS: BP 162/103; PULSE 77; RESP 18; TEMP 36.4; O2SAT 99; BMI 42.5
--- NOTE | 2021-01-15 15:48 | ECG_ITS ---
[facility] Test Date: 2021-01-15 Pat Name: Kerri Elliott Department: Room: Gender: Female Stores Clerk: : 1990 Requested By: Luis E Walker Order Number: [id number] Marilee MD: Lakshmi Conrad M.D. Measurements Intervals [place] Rate: 75 P: 70 [place]: 164 QRS: 79 QRSD: 98 T: 38 QT: 394 QTc: 440 Interpretive Statements SINUS RHYTHM No previous ECG available for comparison Electronically Signed On 01-16-2021 16:11:30 DENTAL RESIDENT by Lakshmi Conrad M.D. [id number]
[2021-01-15 18:25] LABS: Basophils # 0.1 10^3/uL (0.0-0.1); Basophils % 0.7 %; Eosinophils # 0.1 10^3/uL (0.0-0.8); Eosinophils % 1.5 %; Hematocrit 43.5 % (37.0-47.0); Hemoglobin 14.1 g/dL (11.5-15.3); Lymphocytes # 2.3 10^3/uL (0.8-4.8); Lymphocytes % 31.9 %; Mean Corpuscular HGB Conc 32.4 g/dL (30.0-36.0); Mean Corpuscular Hemoglobin 27.6 pg (28.0-34.0); Mean Corpuscular Volume 85.3 fl (81-99); Mean Platelet Volume 8.9 fL (7.4-10.4); Monocytes # 0.4 10^3/uL (0.2-0.9); Monocytes % 5.2 %; Neutrophils # 4.43 10^3/uL (1.8-7.7); Neutrophils % 60.6 %; Nucleated Red Blood Cells % 0 %; Platelet Count 292 10^3/cmm (130-400); Red Cell Distribution Width 12.7 % (12.1-15.1); White Blood Count 7.3 10^3/uL (4.0-10.0)
[2021-01-15 18:45] LABS: D Dimer 0.59 ug/mIFEU (0-0.59)
[2021-01-15 19:04] LABS: Troponin(5th) Baseline 6 ng/L (0-10)
[2021-01-15 19:05] LABS: Alanine Aminotransferase 20 U/L (0-33); Albumin Level 4.6 g/dL (3.5-5.2); Alkaline Phosphatase 75 IU/L (35-105); Aspartate Amino Transferase 17 U/L (0-32); Blood Urea Nitrogen 18 mg/dL (6-20); Calcium 9.3 mg/dL (8.5-10.5); Carbon Dioxide 23 mmol/L (22-29); Chloride 100 mmol/L (98-107); Globulin 2.9 g/dL (1.3-4.6); Glomerular Filtration Rate 143.9 mL/min (90-130); Glucose 81 mg/dL (65-115); Osmolality Calculated 287 mOsm/kg (285-295); Sodium 138 mmol/L (136-145); Total Protein 7.5 g/dL (6.6-8.7)
[2021-01-15 19:06] LABS: Anion Gap 19.1 (5-19); Potassium 4.1 mmol/L (3.5-5.1)
--- NOTE | 2021-01-15 19:10 | W.ED.ARRPALP ---
HPI - Arrhythmia/Palpitations General: Chief Complaint: Arrhythmia/Palpitations Stated Complaint: CP Time Seen by Provider: 01/15/21 18:48 History of Present Illness: HPI narrative: Patient is a 30-year-old female with past medical history of gestational hypertension. She is here with complaints of of palpitations. Stated early this afternoon while she was sitting down she had a sensation of being very aware of her heartbeat. Not feel particularly irregular not but felt hard and she could feel it up into her shoulder. She did have a mild pressure sensation on her left chest and up into her shoulder. This lasted for about 3 hours and then went away on its own. She did get some mild shortness of breath when she got up and walked. No nausea or diaphoresis. Denies fevers chills nausea vomiting diarrhea altered mental status or syncope. She did recently have a mild sinus infection that was she was taking Sudafed for. Drinks about 200 mg of caffeine a day via a energy drink. She also recently had a thyroid nodule biopsied for which she has not gotten the results back yet she was found to be have mild mild elevated thyroid function. No history of diabetes does not smoke does not take any stimulant drugs or [id number] supplement supplements. Does not have a direct first-degree history of heart attacks before the age of 60. Review of Systems General: Reports: 10 or more systems reviewed and unremarkable except in HPI and below PFSH ED PFSH: Medical History Gastroesophageal reflux Genital warts Hypertension Migraine with aura and without status migrainosus Obesity Surgical History H/O section (05/18/18) Primary LTCS. Diagnosis: Worsening gestational hypertension. Performed by Dr. Judson Bridges at [facility] and [place], [place]. Confirmed LTCS with 2 layer closure. H/O dilation and curettage (08/04/17) Diagnosis: Molar . Performed by Dr. Judson Bridges at [facility] in [place], [place]. Pathology confirmed molar . History of bilateral tubal ligation (09/05/19) Complete salpingectomy at time of section. Performed by Dr. Bridges at [facility] in [place], [place] History of cholecystectomy (~04/2014) Laparoscopic. Performed in [place], [place]. Status post delivery (09/05/19) RLTCS, BTL (complete salpingectomy). Performed by Dr. Bridges at [facility] in [place], [place] Family History Mother Hypertension Diabetes Father Hypertension Diabetes Heart disease Congestive heart failure (CHF) Chronic kidney disease (CKD) Brother Hypertension Grandfather Diabetes Heart disease Grandmother Diabetes Breast cancer Maternal Colon cancer Paternal Social History Smoking and tobacco status: never smoked Alcohol intake: former Former alcohol use details: Occational alcohol use, denies since Agree to transfusion: Yes Additional social history: Nutrition: Well-balanced diet. Physical Exam Const: COMMON NORMALS: no acute distress, average body habitus, patient oriented x3, no limitations, healthy appearing, alert and well nourished HENMT: COMMON NORMALS: normocephalic and atraumatic HEAD & SCALP: normocephalic and atraumatic Neck/C-Spine: COMMON NORMALS: no JVD Resp: COMMON NORMALS: normal respiratory effort and No retractions Cardio: COMMON NORMALS: no JVD, regular rate, regular rhythm, S1 normal heart sound present, S2 normal heart sound present, No gallops present (Cardio), No clicks present (Cardio) and No murmurs present (Cardio) JUGULAR VENOUS DISTENTION: no JVD RATE: regular rate RHYTHM: regular rhythm HEART SOUNDS: S1 normal heart sound present and S2 normal heart sound present GI: COMMON NORMALS: Normal to inspection, nondistended, normoactive bowel sounds present, Soft to palpation and non-tender INSPECTION: Yes normal to inspection AUSCULTATION: Yes normoactive bowel sounds PALPATION: Yes Soft to palpation Extremity: COMMON NORMALS: normal to inspection, full ROM, capillary refill normal and no clubbing, cyanosis or edema Neuro: YOHANNES COMA SCALE: document GCS findings COMMON NORMALS: patient oriented x3 SENSORIUM/ORIENTATION: Yes alert Psych: COMMON NORMALS: mental status grossly normal Skin: COMMON NORMALS: no rashes or lesions noted GENERAL SKIN EXAM: no rashes or lesions noted Course ED course: Patient continued to well did not have any symptoms while she was here. Her blood pressure did climb to 169/113. She is not having shortness of breath chest pain visual changes or altered mental status at this would seem to be asymptomatic. We will go ahead and give her 100 mg of labetalol p.o. which is what she was taking earlier and have her follow-up with her primary care provider. Lab work-up was essentially normal she does have hyperthyroidism for which she has a plan in place with her primary care provider. We will discharge her at this time of her follow-up with her primary care provider and return with any new or worsening symptoms but at this point she is appropriate for discharge Vital Signs: Vital signs: Vital Signs Temperature 97.6 F 01/15/21 15:32 Pulse Rate 78 01/15/21 19:18 Respiratory Rate 16 01/15/21 19:18 Blood Pressure 133/101 01/15/21 19:18 Pulse Oximetry 99 01/15/21 19:18 MDM - Arrhythmia/Palpitations MDM Narrative: Medical decision making narrative: Patient is a 30-year-old female with a brief episode of palpitations She has not had any palpitations or symptoms for the last several hours while she has been here. EKG is unremarkable we will check electrolytes as well as a troponin. We will also check a TSH. It could be combination of her thyroid nodule and fact that she is both taken some additional [id number]-ayjpuhu Sudafed as well as her daily caffeine intake that may have started some brief palpitations. I do recommend that she no longer take anything with pseudoephedrine cut down on her caffeine intake. She is well-appearing appears to be normal sinus rhythm vital signs are normal at this time Differential Diagnosis: Differential diagnosis arrhythmia/palpitations: Likely palpitations, anxiety, sinus tachycardia and artial flutter Medical Records: Attestation: I reviewed the patient's medical records. Lab Data: Attestation: I reviewed the patient's lab results. Labs: Lab Results 01/15/21 01/15/21 01/15/21 18:15 18:15 18:15 WBC 7.3 10^3/uL 10^3/ uL (4.0-10.0) RBC 5.10 10^6/uL 10^6 /uL (4.1-5.3) Hgb 14.1 g/dL g/dL (11.5-15.3) Hct 43.5 % % (37.0-47.0) MCV 85.3 fl fl (81-99) MCH 27.6 pg L pg (28.0-34.0) MCHC 32.4 g/dL g/dL (30.0-36.0) RDW 12.7 % % (12.1-15.1) Plt Count 292 10^3/cmm 10^3 /cmm (130-400) MPV 8.9 fL fL (7.4-10.4) Neut % (Auto) 60.6 % % Lymph % (Auto) 31.9 % % [place] % (Auto) 5.2 % % Eos % (Auto) 1.5 % % Baso % (Auto) 0.7 % % Neut # (Auto) 4.43 10^3/uL 10^3 /uL (1.8-7.7) Lymph # (Auto) 2.3 10^3/uL 10^3/ uL (0.8-4.8) [place] # (Auto) 0.4 10^3/uL 10^3/ uL (0.2-0.9) Eos # (Auto) 0.1 10^3/uL 10^3/ uL (0.0-0.8) Baso # (Auto) 0.1 10^3/uL 10^3/ uL (0.0-0.1) Nucleated RBC % (a uto) 0 % % Nucleated RBCs # 0.0 /100WBC /100W BC D-Dimer 0.59 ug/mIFEU ug/ mIFEU (0-0.59) Sodium 138 mmol/L mmol/L (136-145) Potassium 4.1 mmol/L mmol/L (3.5-5.1) Chloride 100 mmol/L mmol/L (98-107) Carbon Dioxide 23 mmol/L mmol/L (22-29) Anion Gap 19.1 H (5-19) BUN 18 mg/dL mg/dL (6-20) Creatinine 0.5 mg/dL mg/dL (0.5-0.9) GFR Calculation 143.9 mL/min H mL /min (90-130) Glucose 81 mg/dL mg/dL (65-115) Calculated Osmolal ity 287 mOsm/kg mOsm/ kg (285-295) Calcium 9.3 mg/dL mg/dL (8.5-10.5) Total Bilirubin 1.0 mg/dL mg/dL (0.15-1.2) AST 17 U/L U/L (0-32) ALT 20 U/L U/L (0-33) Alkaline Phosphata se 75 IU/L IU/L (35-105) Troponin T Baselin e Total Protein 7.5 g/dL g/dL (6.6-8.7) Albumin 4.6 g/dL g/dL (3.5-5.2) Globulin 2.9 g/dL g/dL (1.3-4.6) 01/15/21 18:15 WBC RBC Hgb Hct MCV MCH MCHC RDW Plt Count MPV Neut % (Auto) Lymph % (Auto) [place] % (Auto) Eos % (Auto) Baso % (Auto) Neut # (Auto) Lymph # (Auto) [place] # (Auto) Eos # (Auto) Baso # (Auto) Nucleated RBC % (a uto) Nucleated RBCs # D-Dimer Sodium Potassium Chloride Carbon Dioxide Anion Gap BUN Creatinine GFR Calculation Glucose Calculated Osmolal ity Calcium Total Bilirubin AST ALT Alkaline Phosphata se Troponin T Baselin e 6 ng/L ng/L (0-10) Total Protein Albumin Globulin EKG Data^: EKG 1: Attestation: I personally reviewed and interpreted this EKG as follows: EKG interpretation date: 01/15/21 EKG interpretation time: 19:15 Interpretation: Normal sinus rhythm rate 75 TX interval 164 QRS 98 QTc 422 axis normal no signs of ischemia or infarct Discharge Plan Discharge Patient Disposition: Home Condition: Stable Prescriptions: No Action Zyrtec 10 mg capsule 10 mg PO DAILY RF: 0 Vitamin PO RF: 0 labetalol 100 mg tablet 200 mg PO BID Qty: 120 RF: 0 Discharge Orders: Discharge ED (Routine); Ordered 01/15/21 Ordered By: Raphael Christianson Referrals: Lucas Galeano MD [Primary Care Provider] - 1-3 days Discharge Diet: Usual diet Discharge Activity: Resume usual activity Patient Instructions: Heart Palpitations (ED) Activity Restrictions/Additional Instructions: Follow-up with your primary care provider in 3 to 5 days. Avoid use of stimulant medicines or substances such as excessive caffeine pseudoephedrine or cold medicines that contain pseudoephedrine. 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
[2021-01-15 19:18] VITALS: BP 133/101; PULSE 78; RESP 16; O2SAT 99
[2021-01-15] MEDS: labetalol 200 mg Tablet 100 MG PO (20:03)
== END 2021-01-15 20:01 | disposition home or self-care (01) ==
PROVIDERS: Family Medicine; Emergency Provider Family Medicine; PCP Family Medicine
DX: I49.9 Cardiac arrhythmia, unspecified (principal); R00.2 Palpitations; K21.9 Gastro-esophageal reflux disease without esophagitis; I10 Essential (primary) hypertension
CPT/HCPCS: 36415; 80053; 84484; 85025; 85378; 93005; 99283

== ENCOUNTER 2021-05-21 17:10 | Emergency (ER) | payer BC, SELFPAY ==
--- NOTE | 2021-05-21 17:54 | ECG_ITS ---
[facility] Test Date: 2021-05-21 Pat Name: Kerri Elliott Department: Room: Gender: Female Tip Bander: : 1990 Requested By: Celia Hansen Order Number: [id number] Marilee MD: Linda Wise M.D. Measurements Intervals [place] Rate: 68 P: 65 MS: 182 QRS: 65 QRSD: 102 T: 61 QT: 420 QTc: 449 Interpretive Statements SINUS RHYTHM Compared to ECG 01/15/2021 15:47:03 No significant changes Electronically Signed On 05-22-2021 17:46:06 CDT by Linda Wise M.D. [id number]
--- NOTE | 2021-05-21 17:54 | XRR_ITS ---
PROCEDURE INFORMATION: Exam: XR Chest Exam date and time: 05/21/2021 6:02 PM Age: 31 years old Clinical indication: Shortness of breath; Additional info: Cp TECHNIQUE: Imaging protocol: XR of the chest. Views: 1 view. COMPARISON: NM thyroid uptake multi [id number] 12/30/2020 8:57 AM FINDINGS: Lungs: Unremarkable. No consolidation. Pleural spaces: Unremarkable. No pleural effusion. No pneumothorax. Heart/Mediastinum: Unremarkable. No cardiomegaly. Bones/joints: Unremarkable. XR/XR chest 1V portable [id number] IMPRESSION: No acute findings.
[2021-05-21 18:44] VITALS: BP 163/102; PULSE 84; RESP 14; TEMP 36.6; O2SAT 100; BMI 42.5
[2021-05-21 22:00] VITALS: BP 125/64; PULSE 75; RESP 18; O2SAT 98
[2021-05-21 22:31] VITALS: BP 126/66; PULSE 86; RESP 18; O2SAT 97
--- NOTE | 2021-05-21 22:31 | ED_ITS ---
HPI - Dizziness General: Chief Complaint: Dizziness Stated Complaint: HBP, jerking legs, feeling like passing out Time Seen by Provider: 05/21/21 22:16 Source: patient and family Mode of arrival: wheelchair Limitations: no limitations History of Present Illness: HPI Narrative: Patient is a 31-year-old old who presents to ED today with her and a friend for an evaluation regarding an episode that occurred at work prior to arrival. Patient tells me she was seated when she began feeling dizzy and having tunnel vision . She felt like she might pass out but never had a syncopal episode. She states she began developing lip and tongue numbness. Patient states she did not notice any slurred speech or difficulty articulating words. Patient or coworkers did not notice any facial drooping. No trouble with balance/gait. She did not have any chest pain, shortness of breath, or palpitations. She states she did check her blood pressure and it was elevated. She did develop a headache and some blurry vision. While seated in the waiting room the friend states patient seemed to have trouble focusing. Upon my initial history and encounter with patient she tells me that most of her symptoms are improving. MD elicited complaint: dizziness and near syncope Onset (ago): hour(s) Timing: gradual onset Associated symptoms: Reports headache(s); Denies chest pain, chills, malaise, nausea, nasal congestion, palpitations, syncope or vomiting Associated neuro symptoms: Reports confusion; Deny numbness in extremities Stroke scale total: 0 Review of Systems Const: Denies: fever(s), chills, body aches, fatigue or malaise Eyes: Reports: change in vision (resolved); Denies: blurry vision, blind spots, photophobia, floaters or seeing flashes ENMT: Denies: throat pain, odynophagia, nasal discharge or nasal congestion Card: Reports: lightheadedness (improved) and pre-syncope; Denies: chest pain, palpitations, irregular heart rhythm, edema, swelling of feet/ankles, syncope, dyspnea on exertion, orthopnea, leg pain with exertion or acrocyanosis Resp: Denies: dyspnea, productive cough, wheezing, hemoptysis or chest congestion GI: Denies: abdominal pain, nausea, vomiting or diarrhea : Denies: flank pain or dysuria Musc: Denies: neck pain, back pain, extremity pain or joint pain Skin/Breast: Denies: rash Neuro: Reports: headache(s), sensory changes (lips/tongue), dizziness, vertigo, confusion and difficulty communicating thoughts; Denies: numbness in extremities, frequent falls, Slurred speech present or restless legs PFSH ED PFSH: Medical History (Updated 05/22/21 @ 00:23 by AYAAN Owen) Gastroesophageal reflux Genital warts Hypertension Migraine with aura and without status migrainosus Obesity Surgical History H/O section (05/18/18) Primary LTCS. Diagnosis: Worsening gestational hypertension. Performed by Dr. Judson Bridges at [facility] and [place], [place]. Confirmed LTCS with 2 layer closure. H/O dilation and curettage (08/04/17) Diagnosis: Molar . Performed by Dr. Judson Bridges at [facility] in [place], [place]. Pathology confirmed molar . History of bilateral tubal ligation (09/05/19) Complete salpingectomy at time of section. Performed by Dr. Bridges [place] [facility] [place], [place] History of cholecystectomy (~04/2014) Laparoscopic. Performed in [place], [place]. Status post delivery (09/05/19) RLTCS, BTL (complete salpingectomy). Performed by Dr. Bridges at [facility] [place], [place] Family History Mother Hypertension Diabetes Father Hypertension Diabetes Heart disease Congestive heart failure (CHF) Chronic kidney disease (CKD) Brother Hypertension Grandfather Diabetes Heart disease Grandmother Diabetes Breast cancer Maternal Colon cancer Paternal Social History Smoking and tobacco status: never smoked Alcohol intake: former Former alcohol use details: Occational alcohol use, denies since Agree to transfusion: Yes Additional social history: Nutrition: Well-balanced diet. Physical Exam Const: COMMON NORMALS: no acute distress, patient oriented x3, no limitations and alert GENERAL APPEARANCE: cooperative NUTRITIONAL APPEARANCE: obese morbidly obese ORIENTATION/CONSCIOUSNESS: Yes awake, Yes oriented to person, Yes oriented to place and Yes oriented to time HENMT: COMMON NORMALS: normocephalic and atraumatic HEAD & SCALP: normal to inspection, normocephalic and atraumatic FACE & SINUS: normal facial exam Eye: COMMON NORMALS: Equal, round and reactive pupils present and EOMs intact bilaterally GENERAL EYE: appearance normal, both eyes and all related structures and normal light reflex PUPIL: Yes Equal, round and reactive pupils present DIRECT OPHTHALMOSCOPY: Yes normal light reflex Neck/C-Spine: COMMON NORMALS: full ROM, no lymphadenopathy and no meningeal signs Resp: COMMON NORMALS: normal respiratory effort and clear to auscultation bilaterally AUSCULTATION: clear to auscultation bilaterally Cardio: COMMON NORMALS: regular rate and regular rhythm RATE: regular rate RHYTHM: regular rhythm GI: COMMON NORMALS: Normal to inspection, nondistended, normoactive bowel sounds present, Soft to palpation, non-tender and no masses PALPATION: Yes Soft to palpation Extremity: GENERAL: Yes normal exam except as noted Neuro: MARCIO COMA SCALE: document GCS findings Marcio coma scale eye opening: Spontaneous Marcio coma scale verbal response: Orientated [place] coma scale motor response: Obey commands Marcio coma scale total score: 15 COMMON NORMALS: patient oriented x3, CN's II-XII intact bilaterally, moves all extremities, no focal motor deficits and no sensory deficits noted SENSORIUM/ORIENTATION: Yes alert, Yes oriented to person, Yes oriented to place and Yes oriented to time MENINGEAL SIGNS: Yes no meningeal signs SPEECH: speech normal SENSORY EXAM: Yes other (reported sensory to face, bilateral UE/LEs normal) MOTOR EXAM: 5/5 motor strength present throughout, Pronator motor function not present, Motor fasciculations not present and Normal motor muscle tone present throughout Skin: COMMON NORMALS: no rashes or lesions noted GENERAL SKIN EXAM: no rashes or lesions noted Course Vital Signs: Vital signs: Vital Signs Temperature 97.9 F 05/21/21 18:44 Pulse Rate 93 05/22/21 00:30 Respiratory Rate 16 05/22/21 00:30 Blood Pressure 124/58 05/22/21 00:30 Pulse Oximetry 99 05/22/21 00:30 MDM - Dizziness Medical Decision Making Upon my initial assessment of patient she states that most of her symptoms were already improving. During re-assessment she tells me that the majority of her symptoms are gone and /friend in the room feels like she is doing much better and is back to baseline. She was initially hypertensive upon arrival but this resolved without intervention. Her blood work is unremarkable. EKG is normal. CT head is negative. She has an NIHSS score of 0 at this time. I don't suspect anything cardiac based on her lack of chest pains, palpitations, or SOB along with normal EKG/trop/CXR. She denies any new medications or changes to medications. No excessive caffeine/stimulate use today. I checked a TSH which was normal. Symptoms possibly related to her transient hypertension? I would have an extremely low suspicion for ischemic stroke-spoke about TIA as symptoms have fully resolved. Did mention possibility of CTA however patient states she feels comfortable going home at this time and will follow up with PCP. Strict return to ED precautions given to patient/friend/family. Lab Data : 05/21/21 23:00 05/21/21 23:00 Radiology Impressions Chest X-Ray 05/21/21 17:54 IMPRESSION: No acute findings. Head CT 05/21/21 22:31 IMPRESSION: No acute intracranial abnormality. Laboratory Results WBC 8.0 10^3/uL (4.0-10.0) 05/21/21 23:00 RBC 5.04 10^6/uL (4.1-5.3) 05/21/21 23:00 Hgb 14.3 g/dL (11.5-15.3) 05/21/21 23:00 Hct 43.5 % (37.0-47.0) 05/21/21 23:00 MCV 86.3 fl (81-99) 05/21/21 23:00 MCH 28.4 pg (28.0-34.0) 05/21/21 23:00 MCHC 32.9 g/dL (30.0-36.0) 05/21/21 23:00 RDW 12.9 % (12.1-15.1) 05/21/21 23:00 Plt Count 270 10^3/cmm (130-400) 05/21/21 23:00 MPV 9.4 fL (7.4-10.4) 05/21/21 23:00 Neut % (Auto) 63.9 % 05/21/21 23:00 Lymph % (Auto) 27.8 % 05/21/21 23:00 [place] % (Auto) 6.1 % 05/21/21 23:00 Eos % (Auto) 1.6 % 05/21/21 23:00 Baso % (Auto) 0.4 % 05/21/21 23:00 Neut # (Auto) 5.12 10^3/uL (1.8-7.7) 05/21/21 23:00 Lymph # (Auto) 2.2 10^3/uL (0.8-4.8) 05/21/21 23:00 [place] # (Auto) 0.5 10^3/uL (0.2-0.9) 05/21/21 23:00 Eos # (Auto) 0.1 10^3/uL (0.0-0.8) 05/21/21 23:00 Baso # (Auto) 0.0 10^3/uL (0.0-0.1) 05/21/21 23:00 Nucleated RBC % (auto) 0 % 05/21/21 23:00 Nucleated RBCs # 0.0 /100WBC 05/21/21 23:00 Sodium 139 mmol/L (136-145) 05/21/21 23:00 Potassium 4.1 mmol/L (3.5-5.1) 05/21/21 23:00 Chloride 100 mmol/L (98-107) 05/21/21 23:00 Carbon Dioxide 26 mmol/L (22-29) 05/21/21 23:00 Anion Gap 17.1 (5-19) 05/21/21 23:00 BUN 15 mg/dL (6-20) 05/21/21 23:00 Creatinine 0.5 mg/dL (0.5-0.9) 05/21/21 23:00 GFR Calculation 143.0 mL/min (90-130) H 05/21/21 23:00 Glucose 96 mg/dL (65-115) 05/21/21 23:00 Calculated Osmolality 289 mOsm/kg (285-295) 05/21/21 23:00 Calcium 9.5 mg/dL (8.5-10.5) 05/21/21 23:00 Total Bilirubin 1.0 mg/dL (0.15-1.2) 05/21/21 23:00 AST 24 U/L (0-32) 05/21/21 23:00 ALT 34 U/L (0-33) H 05/21/21 23:00 Alkaline Phosphatase 78 IU/L (35-105) 05/21/21 23:00 Troponin T Baseline 6 ng/L (0-10) 05/21/21 23:00 Total Protein 7.3 g/dL (6.6-8.7) 05/21/21 23:00 Albumin 4.5 g/dL (3.5-5.2) 05/21/21 23:00 Globulin 2.8 g/dL (1.3-4.6) 05/21/21 23:00 TSH 0.53 uIU/mL (0.27-4.20) 05/21/21 23:00 HCG, Qual Negative (Negative) 05/21/21 23:25 Discharge Plan Discharge Patient Disposition: Home Clinical Impression: Transient hypertension, Pre-syncope Condition: Stable Prescriptions: No Action Zyrtec 10 mg capsule 10 mg PO DAILY 0RF Vitamin PO 0RF labetalol 100 mg tablet 200 mg PO BID Qty: 120 0RF Discharge Orders: Discharge ED (Routine); Ordered 05/22/21 Ordered By: Evelina Talbot Referrals: Lucas Galeano MD [Primary Care Provider] - Coding Level of Care Code ED 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
--- NOTE | 2021-05-21 22:31 | CTR_ITS ---
PROCEDURE INFORMATION: Exam: CT Head Without Contrast Exam date and time: 05/21/2021 10:46 PM Age: 31 years old Clinical indication: Dizziness and numbness / parasthesia; Patient HX: Patient states earlier today she nearly passed out and is C/O dizziness with tongue/lip numbness. ; Additional info: Dizzy, AMS, presyncope, lip/tongue numb TECHNIQUE: Imaging protocol: Computed tomography of the head without contrast. Radiation optimization: All CT scans at this facility use at least one of these dose optimization techniques: automated exposure control; mA and/or kV adjustment per patient size (includes targeted exams where dose is matched to clinical indication); or iterative reconstruction. COMPARISON: NM thyroid uptake multi [id number] 12/30/2020 8:57 AM RADIATION DOSE METRICS: Total DLP (mGy-cm): 897.39 FINDINGS: Brain: Normal. No hemorrhage. Unremarkable white matter. No mass effect. Cerebral ventricles: No ventriculomegaly. Paranasal sinuses: Visualized sinuses are unremarkable. No fluid levels. Mastoid air cells: Visualized mastoid air cells are well aerated. Bones/joints: Unremarkable. No acute fracture. Soft tissues: Unremarkable. CT/CT head wo con* [id number] IMPRESSION: No acute intracranial abnormality.
[2021-05-21 22:52] VITALS: BP 127/61; PULSE 77; RESP 18; O2SAT 99
[2021-05-21 23:11] LABS: Basophils % 0.4 %; Eosinophils # 0.1 10^3/uL (0.0-0.8); Eosinophils % 1.6 %; Hematocrit 43.5 % (37.0-47.0); Hemoglobin 14.3 g/dL (11.5-15.3); Lymphocytes # 2.2 10^3/uL (0.8-4.8); Lymphocytes % 27.8 %; Mean Corpuscular HGB Conc 32.9 g/dL (30.0-36.0); Mean Corpuscular Hemoglobin 28.4 pg (28.0-34.0); Mean Corpuscular Volume 86.3 fl (81-99); Mean Platelet Volume 9.4 fL (7.4-10.4); Monocytes # 0.5 10^3/uL (0.2-0.9); Monocytes % 6.1 %; Neutrophils # 5.12 10^3/uL (1.8-7.7); Neutrophils % 63.9 %; Nucleated Red Blood Cells % 0 %; Platelet Count 270 10^3/cmm (130-400); Red Blood Count 5.04 10^6/uL (4.1-5.3); Red Cell Distribution Width 12.9 % (12.1-15.1)
[2021-05-21 23:30] VITALS: BP 135/65; PULSE 83; RESP 18; O2SAT 100
[2021-05-21 23:31] LABS: Troponin(5th) Baseline 6 ng/L (0-10)
[2021-05-21 23:39] LABS: Alanine Aminotransferase 34 U/L (0-33); Albumin Level 4.5 g/dL (3.5-5.2); Alkaline Phosphatase 78 IU/L (35-105); Blood Urea Nitrogen 15 mg/dL (6-20); Calcium 9.5 mg/dL (8.5-10.5); Carbon Dioxide 26 mmol/L (22-29); Chloride 100 mmol/L (98-107); Globulin 2.8 g/dL (1.3-4.6); Glucose 96 mg/dL (65-115); Osmolality Calculated 289 mOsm/kg (285-295); Sodium 139 mmol/L (136-145); Thyroid Stimulating Hormone 0.53 uIU/mL (0.27-4.20); Total Protein 7.3 g/dL (6.6-8.7)
[2021-05-21 23:40] LABS: Anion Gap 17.1 (5-19); Aspartate Amino Transferase 24 U/L (0-32); Potassium 4.1 mmol/L (3.5-5.1)
[2021-05-21 23:53] LABS: HCG, Serum Qual Negative (Negative)
[2021-05-22] VITALS: BP 123/62; PULSE 75; RESP 16; O2SAT 99
[2021-05-22 00:30] VITALS: BP 124/58; PULSE 93; RESP 16; O2SAT 99
== END 2021-05-22 00:30 | disposition home or self-care (01) ==
PROVIDERS: Emergency Medicine; Emergency Provider Physician Assistant; PCP Family Medicine
DX: R03.0 Elevated blood-pressure reading, without diagnosis of hypertension (principal); R55 Syncope and collapse
CPT/HCPCS: 70450; 71045; 80053; 84443; 84484; 84703; 85025; 93005; 99283

== ENCOUNTER → 2022-03-02 09:44 | Outpatient (BNVA) | payer BC, SELFPAY | PROVIDERS: PCP Family Medicine; Visit Provider Family Medicine | DX: Z02.1 Encounter for pre-employment examination (principal) | CPT/HCPCS: 86480; 86735; 86762; 86765; 86787 ==